=== PATIENT | female | born 1995 | race American Indian/Alaskan Native ===

== ENCOUNTER 2016-10-17 16:00 | Emergency (ER) | payer MEDICAID ==
[2016-10-17 16:01] VITALS: BMI 26.6
[2016-10-17 16:19] VITALS: BP 106/68; PULSE 76; RESP 18; TEMP 98.2; O2SAT 99
--- NOTE | 2016-10-17 16:29 | C.PDOC ---
History Of Present Illness 21 y/o female presents to the ED for evaluation after injury to left elbow and right thigh which occurred yesterday. Patient states she accidentally slipped and fell down some steps. Patient was ambulatory on scene. She c/o right buttock and thigh pain. Patient states symptoms are worse with movement. She also notes abrasion to left elbow with pain. Patient has found limited relief with Aleve 500mg. Patient denies LOC/head injury, extremity numbness/weakness. CO R THIGH AND L ELBOW INJURY ONSET LAST NIGHT. PS ACCID SLIPPED AND FELL DOWN SOME STEPS. AMBUL ON SCENE. CO R BUTTOCK AND THIGH PAIN. WORSE W MOVEMENT. + ABRASION L ELBOW PAIN. LIMTIED RELIEF W ALEVE 500 MG EXAM NAD SKIN +ABRASION L ELBOW NO SIGNS INFXN EXT RLEG AROM R HIP WO DIFF. +MULT BRUISING LAT R THIGH. NO FOCAL TEND. NO DEFORM GAIT WT BEAR WO DIFF Time Seen by Provider: 10/17/16 16:19 Chief Complaint (Nursing): Lower Extremity Problem/Injury History Per: Patient History/Exam Limitations: no limitations Onset/Duration Of Symptoms: Hrs Current Symptoms Are (Timing): Still Present Additional History Per: Patient Past Medical History Reviewed: Historical Data, Nursing Documentation, Vital Signs Vital Signs: Last Vital Signs Temp 98.2 F 10/17/16 16:17 Pulse 76 10/17/16 16:17 Resp 18 10/17/16 16:17 BP 106/68 10/17/16 16:17 Pulse Ox 99 10/17/16 22:16 - Medical History PMH: No Chronic Diseases Surgical History: No Surg Hx Family History: States: Unknown Family Hx - Social History Hx Tobacco Use: No Hx Alcohol Use: No Hx Substance Use: No - Immunization History Hx Tetanus Toxoid Vaccination: No Hx Influenza Vaccination: No Hx Pneumococcal Vaccination: No Review Of Systems Except As Marked, All Systems Reviewed And Found Negative. Musculoskeletal: Positive for: Other (+right thigh pain, left elbow pain ) Physical Exam - Physical Exam Appears: No Acute Distress Skin: Normal Color, Warm, Dry, Ecchymosis (multiple regions to lateral aspect of right thigh ), Other (+abrasion to left elbow. no signs of infection ) Head: Atraumatic, Normacephalic Eye(s): bilateral: Normal Inspection Oral Mucosa: Moist Neck: Supple Chest: Symmetrical, No Deformity, No Tenderness Cardiovascular: Rhythm Regular, No Murmur Respiratory: Normal Breath Sounds, No Rales, No Rhonchi, No Wheezing Back: Normal Inspection, No Vertebral Tenderness, No Paraspinal Tenderness Extremity: Normal ROM (right leg and right hip without difficulty), No Tenderness (focal ), Capillary Refill (less than 2 seconds ), No Deformity, Other (+multiple bruising to lateral aspect of right thigh. ) Neurological/Psych: Oriented x3, Normal Speech, Normal Cognition Gait: Steady (+weight bearing without difficulties) ED Course And Treatment O2 Sat by Pulse Oximetry: 99 (on RA) Pulse Ox Interpretation: Normal Progress Note: Patient received Flexeril PO, Tylenol PO, and Motrin PO. Disposition Counseled Patient/Family Regarding: Diagnosis, Need For Followup, Rx Given - Disposition Referrals: YOUR,PMD [Other] Disposition: HOME/ ROUTINE Disposition Time: 16:36 Condition: GOOD Prescriptions: Acetaminophen [Tylenol Extra Strength] 2 tab PO Q6 #30 tablet Cyclobenzaprine [Flexeril] 10 mg PO TID #15 tab Ibuprofen [Motrin] 600 mg PO Q6 #30 tab Instructions: Contusion in Adults (ED) Forms: Work Excuse - Clinical Impression Clinical Impression: Contusion of leg, Elbow abrasion - Scribe Statement The provider has reviewed the documentation as recorded by the Scribe (Zita Gifford) Provider Attestation: All medical record entries made by the Scribe were at my direction and personally dictated by me. I have reviewed the chart and agree that the record accurately reflects my personal performance of the history, physical exam, medical decision making, and the department course for this patient. I have also personally directed, reviewed, and agree with the discharge instructions and disposition.
== END 2016-10-17 16:46 | disposition home or self-care (01) ==
LOC: C.ER 16:00
DX: S70.11XA Contusion of right thigh, initial encounter (principal); S50.312A Abrasion of left elbow, initial encounter; W10.9XXA Fall (on) (from) unspecified stairs and steps, initial encounter; Y92.89 Other specified places as the place of occurrence of the external cause

== ENCOUNTER 2017-05-09 23:34 | Emergency (ER) | payer MEDICAID ==
[2017-05-09 23:35] VITALS: BMI 26.6
[2017-05-10 00:01] VITALS: BP 107/72; PULSE 98; RESP 16; TEMP 98.5; O2SAT 100
--- NOTE | 2017-05-10 00:43 | C.PDOC ---
History Of Present Illness 22 year old female presents to the ER with a complaint of left elbow pain radiating to the left shoulder since this morning. 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 Patient reports she took naproxen earlier today with minimal relief but notes the pain recurred this evening. Denies chest pain, SOB, palpitations, weakness or numbness. Time Seen by Provider: 05/10/17 00:04 Chief Complaint (Nursing): Upper Extremity Problem/Injury History Per: Patient History/Exam Limitations: no limitations Onset/Duration Of Symptoms: Hrs Current Symptoms Are (Timing): Still Present Exacerbating Factor(s): Strenuous Use Of Affected Area Recent travel outside of the [place]: No Past Medical History Reviewed: Historical Data, Nursing Documentation, Vital Signs Vital Signs: Last Vital Signs Temp 98.5 F 05/09/17 23:55 Pulse 98 H 05/09/17 23:55 Resp 16 05/09/17 23:55 BP 107/72 05/09/17 23:55 Pulse Ox 100 05/10/17 03:08 Family History: States: Unknown Family Hx - Social History Hx Tobacco Use: No Hx Alcohol Use: Yes Hx Substance Use: No - Immunization History Hx Tetanus Toxoid Vaccination: No Hx Influenza Vaccination: No Hx Pneumococcal Vaccination: No Review Of Systems Musculoskeletal: Positive for: Shoulder Pain, Arm Pain Neurological: Negative for: Weakness, Numbness Physical Exam - Physical Exam Appears: Non-toxic, No Acute Distress Skin: Normal Color, Warm, Dry Head: Atraumatic, Normacephalic Eye(s): bilateral: Normal Inspection Neck: Normal Chest: No Tenderness Cardiovascular: Rhythm Regular Respiratory: Normal Breath Sounds, No Rhonchi, No Wheezing Extremity: Capillary Refill (<2 seconds), No Deformity, No Swelling, Other (No swelling, erythema, or warmth to left shoulder, ROM causes pain.) Pulses: Left Radial: Normal, Right Radial: Normal Neurological/Psych: Oriented x3, Normal Speech, Normal Motor, Normal Sensation ED Course And Treatment O2 Sat by Pulse Oximetry: 100 (Room air) Pulse Ox Interpretation: Normal Progress Note: Motrin administered for pain. Patient is resting comfortably in the ER in no acute distress; patient is comfortable going home. Will discharge home with instructions to take OTC medication as needed and follow up with PMD for further evaluation or return to the ER if symptoms worsen. Disposition Counseled Patient/Family Regarding: Diagnosis, Need For Followup - Disposition Referrals: [facility] [Outside] Disposition: HOME/ ROUTINE Disposition Time: 00:44 Condition: STABLE Additional Instructions: Please follow up with PMD Take medications as directed Return to ER if worse Prescriptions: Ibuprofen [Motrin] 600 mg PO Q6H #20 tab Instructions: Arthralgia (ED) Forms: [employer] (Latvian) - Clinical Impression Clinical Impression: Pain, arm, left - PA / RENAL DIALYSIS RN / Resident Statement MD/DO has reviewed & agrees with the documentation as recorded. - Scribe Statement The provider has reviewed the documentation as recorded by the Scribsharon Sandoval All medical record entries made by the Babatundeibsharon were at my direction and personally dictated by me. I have reviewed the chart and agree that the record accurately reflects my personal performance of the history, physical exam, medical decision making, and the department course for this patient. I have also personally directed, reviewed, and agree with the discharge instructions and disposition.
== END 2017-05-10 00:51 | disposition home or self-care (01) ==
LOC: C.ER 23:34
DX: M25.522 Pain in left elbow (principal)

== ENCOUNTER 2017-06-02 00:27 | Emergency (ER) | payer SELFPAY ==
[2017-06-02 00:27] VITALS: BMI 26.6
--- NOTE | 2017-06-02 01:06 | C.PDOC ---
Time Seen by Provider: 06/02/17 01:06 Chief Complaint (Nursing): Abdominal Pain Past Medical History Reviewed: Historical Data, Nursing Documentation, Vital Signs Vital Signs: Last Vital Signs Temp 97.9 F 06/02/17 00:28 Pulse 92 H 06/02/17 00:28 Resp 20 06/02/17 00:28 BP 121/79 06/02/17 00:28 Pulse Ox 97 06/02/17 01:06 Family History: States: No Known Family Hx - Social History Hx Tobacco Use: No Hx Alcohol Use: Yes Hx Substance Use: No - Immunization History Hx Tetanus Toxoid Vaccination: No Hx Influenza Vaccination: No Hx Pneumococcal Vaccination: No ED Course And Treatment O2 Sat by Pulse Oximetry: 97 Disposition Counseled Patient/Family Regarding: Studies Performed, Diagnosis - Disposition Disposition Time: 01:06 Forms: [employer] (Kyrgyz)
[2017-06-02 01:11] LABS: HCG,QUALITATIVE URINE NEGATIVE (NEGATIVE)
[2017-06-02 01:13] LABS: SQUAMOUS EPITHIAL 7 /hpf (0-5); URINE BILIRUBIN NEGATIVE (NEGATIVE); URINE BLOOD NEGATIVE (NEGATIVE); URINE CLARITY Hazy (Clear); URINE COLOR Yellow (YELLOW); URINE GLUCOSE (UA) NORMAL (Normal); URINE LEUKOCYTE ESTERASE NEG Leu/uL (Negative); URINE NITRATE NEGATIVE (NEGATIVE); URINE PROTEIN NEGATIVE (NEGATIVE)
[2017-06-02] MEDS ORDERED: cefTRIAXone (Rocephin) 250 mg Inj IM STA (01:44)
--- NOTE | 2017-06-02 01:47 | C.PDOC ---
History Of Present Illness patient had unprotected intercourse 2 days ago and developed whitish vaginal discharge and vulvo-vaginal irritations. No f/c/n/v. No dysuria Time Seen by Provider: 06/02/17 01:06 Chief Complaint (Nursing): Abdominal Pain History Per: Patient History/Exam Limitations: no limitations Onset/Duration Of Symptoms: Days Current Symptoms Are (Timing): Still Present Severity: Moderate Pain Scale Rating Of: 4 Quality Of Discomfort: Burning Associated Symptoms: denies: Fever, Chills, Nausea, Vomiting, Urinary Symptoms Alleviating Factors: None Recent travel outside of the [place]: No Additional History Per: Patient Abnormal Vaginal Bleeding: No Past Medical History Reviewed: Historical Data, Nursing Documentation, Vital Signs Vital Signs: Last Vital Signs Temp 97.9 F 06/02/17 00:28 Pulse 92 H 06/02/17 00:28 Resp 20 06/02/17 00:28 BP 121/79 06/02/17 00:28 Pulse Ox 97 06/02/17 00:28 Family History: States: No Known Family Hx - Social History Hx Tobacco Use: No Hx Alcohol Use: Yes Hx Substance Use: No - Immunization History Hx Tetanus Toxoid Vaccination: No Hx Influenza Vaccination: No Hx Pneumococcal Vaccination: No Review Of Systems Constitutional: Negative for: Fever, Chills Gastrointestinal: Negative for: Nausea, Vomiting Genitourinary: Positive for: Vaginal Discharge, Rash. Negative for: Dysuria, Frequency, Hematuria Musculoskeletal: Negative for: Back Pain Skin: Positive for: Rash (vulvo vaginal) Neurological: Negative for: Weakness Psych: Negative for: Anxiety Physical Exam - Physical Exam Appears: Non-toxic, No Acute Distress Skin: Warm, Dry Gastrointestinal/Abdominal: Soft, No Tenderness Pelvic: Normal Speculum Exam, Vaginal Discharge (whitish), No Cervical Motion Tenderness, No Cervix Open, No Adnexal Tenderness Extremity: Normal ROM Extremity: Bilateral: Atraumatic Neurological/Psych: Oriented x3, Normal Speech Gait: Steady ED Course And Treatment O2 Sat by Pulse Oximetry: 97 Pulse Ox Interpretation: Normal Disposition Counseled Patient/Family Regarding: Studies Performed, Diagnosis - Disposition Referrals: Williams Bales MD, PhD [Staff Provider] - Disposition: HOME/ ROUTINE Disposition Time: 01:44 Condition: FAIR Prescriptions: Fluconazole [Diflucan] 200 mg PO DAILY #5 tab Instructions: Vulvovaginal Candidiasis (ED) Forms: [employer] (Malaysian) - Clinical Impression Clinical Impression: Azeb infection of genital region
[2017-06-02 02:28] VITALS: BP 126/69; PULSE 85; RESP 18; TEMP 98.4; O2SAT 99
== END 2017-06-02 02:27 | disposition home or self-care (01) ==
LOC: C.ER 00:27
DX: B37.49 Other urogenital candidiasis (principal)
CPT/HCPCS: 81001; 84703; 96372; 99285; J0696

== ENCOUNTER 2017-06-17 17:51 | Emergency (ER) | payer SELFPAY ==
[2017-06-17 17:51] VITALS: BMI 26.6
[2017-06-17 18:12] VITALS: BP 121/17; RESP 17; TEMP 98.4; O2SAT 100
[2017-06-17 18:43] LABS: HCG,QUALITATIVE URINE NEGATIVE (NEGATIVE)
[2017-06-17 18:45] LABS: SQUAMOUS EPITHIAL 17 /hpf (0-5); URINE BACTERIA RARE (<OCC); URINE BILIRUBIN NEGATIVE (NEGATIVE); URINE BLOOD NEGATIVE (NEGATIVE); URINE CLARITY Hazy (Clear); URINE COLOR Yellow (YELLOW); URINE GLUCOSE (UA) NORMAL (Normal); URINE LEUKOCYTE ESTERASE TRACE Leu/uL (Negative); URINE NITRATE NEGATIVE (NEGATIVE); URINE PROTEIN 1+ mg/dL (NEGATIVE)
--- NOTE | 2017-06-17 18:52 | C.PDOC ---
History Of Present Illness 22 y/o female presents to ED c/o crampy abdominal pain. Pt states she tried taking Marijuana today thinking it will help her have a bowel movement. Pt admits to being sexually active without protection. Denies n/v/d, or fever. Time Seen by Provider: 06/17/17 18:23 Chief Complaint (Nursing): Abdominal Pain History Per: Patient History/Exam Limitations: no limitations Onset/Duration Of Symptoms: Days Current Symptoms Are (Timing): Still Present Location Of Pain/Discomfort: Diffuse Radiation Of Pain To:: None Quality Of Discomfort: Cramping, "Pain" Associated Symptoms: Constipation. denies: Nausea, Vomiting, Diarrhea, Loss Of Appetite Exacerbating Factors: None Alleviating Factors: None Recent travel outside of the [place]: No Additional History Per: Patient Abnormal Vaginal Bleeding: No Past Medical History Reviewed: Historical Data, Nursing Documentation, Vital Signs Vital Signs: Last Vital Signs Temp 98.4 F 06/17/17 18:10 Pulse 101 H 06/17/17 19:04 Resp 17 06/17/17 18:10 BP 121/17 L 06/17/17 18:10 Pulse Ox 100 06/17/17 19:27 Family History: States: Unknown Family Hx - Social History Hx Tobacco Use: No Hx Alcohol Use: Yes Hx Substance Use: Yes - Immunization History Hx Tetanus Toxoid Vaccination: No Hx Influenza Vaccination: No Hx Pneumococcal Vaccination: No Review Of Systems Except As Marked, All Systems Reviewed And Found Negative. Constitutional: Negative for: Fever, Chills Cardiovascular: Negative for: Chest Pain, Palpitations Respiratory: Negative for: Cough, Shortness of Breath Gastrointestinal: Positive for: Abdominal Pain, Constipation. Negative for: Nausea, Vomiting, Diarrhea Genitourinary: Negative for: Dysuria, Frequency, Hematuria Musculoskeletal: Negative for: Back Pain Physical Exam - Physical Exam Appears: Non-toxic, Combative (argumentative), Other (morbidly obese) Skin: Normal Color, Warm, Dry Head: Atraumatic, Normacephalic Eye(s): bilateral: Abnormal Pupil (dilated pupils) Oral Mucosa: Moist Cardiovascular: Rhythm Regular, No Murmur Respiratory: Normal Breath Sounds, No Rales, No Rhonchi, No Wheezing Gastrointestinal/Abdominal: Soft, No Tenderness ((-) Garcia's (-)McBurney's), No Guarding, No Rebound Back: No CVA Tenderness Extremity: Normal ROM, No Deformity Neurological/Psych: Oriented x3, Normal Speech, Other (bizarre affect) ED Course And Treatment - Laboratory Results Lab Interpretation: Normal (ua neg.) Urine POC: Negative O2 Sat by Pulse Oximetry: 100 Medical Decision Making Medical Decision Making: ecstacy and marijuana abuse constipation pt defers w/u beyond UA/Preg with informed consent. Disposition Doctor Will See Patient In The: Office Counseled Patient/Family Regarding: Studies Performed, Diagnosis - Disposition Referrals: Jenny Madrid MD [Staff Provider] - Disposition: HOME/ ROUTINE Disposition Time: 18:51 Condition: GOOD Additional Instructions: avoid ectsacy and marijuana abuse- contributes to anxiety and paranoia Constipation: Drink a bottle of Mag Citrate (laxative ) now and re-evaluate your abdominal discomfort after using the bathroom 2-3 times Diet and exercise changes to avoid constipation test NEGATIVE today. Prescriptions: Magnesium Citrate [[facility] Magnesium Citrate] 300 ml PO ONCE PRN #1 bottle PRN Reason: Constipation Instructions: Drug Abuse and Drug Addiction (DC), Marijuana Use and Addiction, Gas and Bloating (ED) Forms: [employer] (Slovak) - Clinical Impression Clinical Impression: Marijuana abuse, Ecstasy abuse, Colicky periumbilical abdominal pain - Scribe Statement The provider has reviewed the documentation as recorded by the Babatundeibsharon Gifford All medical record entries made by the Scribe were at my direction and personally dictated by me. I have reviewed the chart and agree that the record accurately reflects my personal performance of the history, physical exam, medical decision making, and the department course for this patient. I have also personally directed, reviewed, and agree with the discharge instructions and disposition.
[2017-06-17 19:05] VITALS: PULSE 101
[2017-06-17 19:12] LABS: BARBITURATES, UR NEGATIVE (NEGATIVE); BENZODIAZEPINES, UR NEGATIVE (NEGATIVE); OPIATES, UR NEGATIVE (NEGATIVE); PHENCYCLIDINE, UR NEGATIVE (NEGATIVE)
== END 2017-06-17 19:05 | disposition home or self-care (01) ==
LOC: C.ER 17:51
DX: R10.33 Periumbilical pain (principal); F12.10 Cannabis abuse, uncomplicated; F16.10 Hallucinogen abuse, uncomplicated
CPT/HCPCS: 81001; 84703; 99285; G0480

== ENCOUNTER 2018-04-26 16:08 | Emergency (ER) | payer SELFPAY ==
[2018-04-26 16:09] VITALS: BMI 26.6
[2018-04-26 16:17] VITALS: RESP 18
[2018-04-26] MEDS ORDERED: Sodium Chloride 0.9% 1,000 ML IV ONE (16:22)
--- NOTE | 2018-04-26 17:16 | C.PDOC ---
History Of Present Illness 23 year old female, who is around 8 weeks , presents to the ED for evaluation of vaginal spotting and lower suprapubic discomfort which began yesterday. Patient states the felt a band-like pain around her waist this morning, but has not experienced any vaginal spotting. Patient denies fever, chills, nausea, vomiting, or recent trauma. Patient is . Time Seen by Provider: 04/26/18 16:22 Chief Complaint (Nursing): Abdominal Pain History Per: Patient History/Exam Limitations: no limitations Onset/Duration Of Symptoms: Hrs Current Symptoms Are (Timing): Still Present Location Of Pain/Discomfort: Suprapubic Radiation Of Pain To:: None Quality Of Discomfort: "Pain" Additional History Per: Patient Abnormal Vaginal Bleeding: Yes : 3 Para: 2 Past Medical History Reviewed: Historical Data, Nursing Documentation, Vital Signs Vital Signs: Last Vital Signs Temp 98 F 04/26/18 16:12 Pulse 83 04/26/18 16:12 Resp 18 04/26/18 16:12 BP 106/72 04/26/18 16:12 Pulse Ox 96 04/26/18 16:12 - Medical History PMH: No Chronic Diseases Surgical History: No Surg Hx Family History: States: Unknown Family Hx - Social History Hx Tobacco Use: No Hx Alcohol Use: No Hx Substance Use: No - Immunization History Hx Tetanus Toxoid Vaccination: No Hx Influenza Vaccination: No Hx Pneumococcal Vaccination: No Review Of Systems Constitutional: Negative for: Fever, Chills Gastrointestinal: Positive for: Abdominal Pain (lower suprapubic ). Negative for: Nausea, Vomiting Genitourinary: Positive for: Vaginal Bleeding Physical Exam - Physical Exam Appears: Non-toxic, No Acute Distress Skin: Normal Color, Warm, Dry Head: Atraumatic, Normacephalic Eye(s): bilateral: Normal Inspection Oral Mucosa: Moist Neck: Supple Chest: Symmetrical, No Deformity, No Tenderness Cardiovascular: Rhythm Regular, No Murmur Respiratory: Normal Breath Sounds, No Rales, No Rhonchi, No Wheezing Gastrointestinal/Abdominal: Soft, No Tenderness, No Guarding, No Rebound, Other (gravid ) Extremity: Normal ROM, Capillary Refill (less than 2 seconds ) Neurological/Psych: Oriented x3, Normal Speech, Normal Cognition ED Course And Treatment - Laboratory Results Result Diagrams: 04/26/18 17:29 04/26/18 17:29 O2 Sat by Pulse Oximetry: 96 (on RA) Pulse Ox Interpretation: Normal Medical Decision Making Medical Decision Making: Progress: Bloodwork, urinalysis, transvaginal ultrasound ordered and reviewed. IV Fluids given. Disposition Counseled Patient/Family Regarding: Studies Performed, Diagnosis, Need For Followup - Disposition Disposition: HOME/ ROUTINE Disposition Time: 18:37 Condition: STABLE Additional Instructions: Follow up with your TERMINAL CLERK in 2 days for repeat blood work. Return to the Emergency Department if significant bleeding or pain. Instructions: Threatened Miscarriage (DC) Forms: [employer] (Romanian), General Discharge Instructions - POA Present On Arrival: None - Clinical Impression Clinical Impression: Threatened - Scribe Statement The provider has reviewed the documentation as recorded by the Scribe (Zita Gifford) Provider Attestation: All medical record entries made by the Scribe were at my direction and personally dictated by me. I have reviewed the chart and agree that the record accurately reflects my personal performance of the history, physical exam, medical decision making, and the department course for this patient. I have also personally directed, reviewed, and agree with the discharge instructions and disposition.
[2018-04-26 17:44] LABS: BASO % 0.4 % (0.0-2.0); EOS # 0.1 K/uL (0.0-0.7); EOS % 1.3 % (0.0-4.0); HEMOGLOBIN 12.7 g/dL (11.0-16.0); LYMPH # 1.9 K/uL (1.0-4.3); MEAN CELL VOLUME 95.9 fL (81.0-99.0); MEAN CORPUSCULAR HEMOGLOBIN 33.2 pg (27.0-31.0); MEAN CORPUSCULAR HGB CONC 34.7 g/dL (33.0-37.0); MEAN PLATELET VOLUME 7.3 fL (7.2-11.7); MONO # 0.5 K/uL (0.0-0.8); MONO % 7.1 % (0.0-10.0); NEUT # 4.9 K/uL (1.8-7.0); NEUT % 66.2 % (50.0-75.0); RBC 3.81 Mil/uL (3.80-5.20); RED CELL DISTRIBUTION WIDTH 12.4 % (11.5-14.5); WHITE BLOOD COUNT 7.4 K/uL (4.8-10.8)
[2018-04-26 18:07] LABS: ALB/GLOB RATIO 1.3 (1.0-2.1); ALBUMIN 4.2 g/dL (3.5-5.0); ALT/SGPT 17 U/L (9-52); AST/SGOT 18 U/L (14-36); BLOOD UREA NITROGEN 10 mg/dL (7-17); CALCIUM 9.2 mg/dl (8.6-10.4); GFR NON-AFRICAN AMERICAN > 60
[2018-04-26 18:12] LABS: SQUAMOUS EPITHIAL 12 /hpf (0-5); URINE BACTERIA RARE (<OCC); URINE BILIRUBIN NEGATIVE (NEGATIVE); URINE BLOOD NEGATIVE (NEGATIVE); URINE CLARITY Hazy (Clear); URINE COLOR Yellow (YELLOW); URINE GLUCOSE (UA) NORMAL (Normal); URINE LEUKOCYTE ESTERASE TRACE Leu/uL (Negative); URINE PROTEIN NEGATIVE (NEGATIVE)
--- NOTE | 2018-04-26 18:19 | US ---
Date of service: 04/26/2018 Indication: vaginal bleeding Comparison: 1st trimester ultrasound performed 08/19/15. No more recent study available for direct comparison. Technique: Transabdominal pelvic ultrasound Findings: Uterus measures approximately 10.8 x 7.8 x 7.9 cm. Anteverted. Cervix length measures approximately 3.0 cm. There is a single intrauterine fetus present. Yolk sac is not visualized. The gestational sac measures 5.0 cm and is compatible with a gestational age of 10 weeks 5 days. The crown-rump length measures 3.2 cm and is compatible with a gestational age of 10 weeks 1 day. Evidence of small subchorionic hemorrhage which measures approximately 2.2 x 1.8 x 1.7 cm. There is heart motion which measured 154.4 BPM. The right ovary measures 3.0 x 1.7 x 2.4 cm. The left ovary measures 2.9 x 3.0 x 3.7 cm. Complex left ovarian cyst measures 1.4 x 1.4 x 1.3 cm, likely corpus luteal cyst. Blood flow was demonstrated to both ovaries. Impression: Live single intrauterine with estimated gestational age 10 weeks 5 days by gestational sac calculation and 10 weeks 1 day by crown-rump length calculation. heart rate 154.4 bpm. Small subchorionic hemorrhage measures 2.2 x 1.8 x 1.7 cm. Advise an anomaly screen at 16-18 weeks gestational age
[2018-04-26 18:50] VITALS: BP 125/61; PULSE 66; TEMP 97.6
[2018-04-28 16:13] VITALS: O2SAT 96
== END 2018-04-26 18:51 | disposition home or self-care (01) ==
LOC: C.ER 16:08
DX: O20.0 Threatened abortion (principal); Z3A.10 10 weeks gestation of pregnancy
CPT/HCPCS: 76801; 80053; 81001; 84702; 85025; 86850; 86900; 96360; 99284; J7030